=== PATIENT | male | born 1995 | race Native Hawaiian/Other Pacific Islander ===

== ENCOUNTER 2017-01-06 22:20 | Inpatient (IN) | payer BC, OTHER ==
[2017-01-07 00:02] LABS: Hematocrit 36.3 % (35.5-45.6); Hemoglobin 11.8 gm/dl (11.8-15.2); Mean Corpuscular HGB Conc 33 % (32-34); Mean Corpuscular Hemoglobin 29 pg (28-32); Mean Corpuscular Volume 89 fl (84-94); Platelet Count 197 K/mm3 (140-440); Red Blood Count 4.06 M/mm3 (3.65-5.03); Red Cell Distribution Width 14.3 % (13.2-15.2); White Blood Count 5.7 K/mm3 (4.5-11.0)
[2017-01-07 00:13] LABS: Alanine Aminotransferase 21 units/L (7-56); Albumin 3.8 g/dL (3.9-5); Alkaline Phosphatase 135 units/L (35-129); Anion Gap 17 mmol/L; Bilirubin,Total 0.3 mg/dL (0.1-1.2); Blood Urea Nitrogen 10 mg/dL (9-20); Calcium 8.9 mg/dL (8.4-10.2); Carbon Dioxide 25 mmol/L (22-30); Chloride 105.1 mmol/L (98-107); Glucose 102 mg/dL (75-100); Sodium 143 mmol/L (137-145); Total Protein 7.6 g/dL (6.3-8.2)
[2017-01-07] MEDS ORDERED: NACL ONE (02:14)
[2017-01-07 02:19] LABS: Anisocytosis Few; Blastocytes % (Manual) 0 %; Diff Status Complete; Eosinophils % (Manual) 0 % (0.0-4.3)
[2017-01-07 02:21] LABS: Lipase 26 units/L (13-60)
[2017-01-07] MEDS ORDERED: BENADRYL IV ONE (03:26)
--- NOTE | 2017-01-07 03:51 | Emergency Department Report ---
HPI - General Chief Complaint: Abdominal Pain Time Seen by Provider: 01/07/17 03:12 - HPI HPI: Room 8 The patient is a 21-year-old male presenting with a chief complaint of foreign body in the rectum. The patient states 2 weeks ago while on spring in [place] placed a foreign body in his rectum. The patient states the foreign body was stuck and he was unable to retrieve it. The patient states he was able to have bowel movements for one week after the event but has not had a bowel movement for the past week. The patient states he went to the hospital in [place] (01/05/2017) where they were able to see the foreign body CT scan. The patient states after the scan his abdomen was found to be distended and the physicians were concerned about bowel perforation recommended taking him to the OR. The patient states he left the hospital AGAINST MEDICAL ADVICE because he did not want to undergo surgery in [place] because he did not want his parents to find out about his situation. The patient was flying back home when he had a layover in [place]. The patient states today he noticed the fever Tmax 101.3F. The patient states at 19:30 he took Tylenol. Patient states during his layover in [place] his pain increased. The patient describes his pain as sharp in nature and located in his left upper quadrant. The patient states applying pressure improves his pain. The patient states for the past 3 days he has exhibited nausea and vomiting. Location: Abdomen Duration: 2 weeks Quality: Sharp Severity: Moderate Modifying factors: [see above] Context: [see above] Mode of transportation: [not driving] ED Past Medical Hx - Past Medical History Hx Sickle Cell Disease: Yes (ss) Additional medical history: acute chest syndrome - Surgical History Past Surgical History?: Yes Additional Surgical History: partial splenectomy - Family History Family history: no significant - Social History Smoking Status: Never Smoker Substance Use Type: Alcohol (occasional) ED Review of Systems ROS: Stated complaint: RECTAL PAIN 2 WKS Other details as noted in HPI Comment: All other systems reviewed and negative Constitutional: fever Eyes: denies: eye pain, eye discharge, vision change ENT: denies: ear pain, throat pain Respiratory: denies: cough, shortness of breath, wheezing Cardiovascular: denies: chest pain, palpitations Endocrine: no symptoms reported Gastrointestinal: abdominal pain, nausea, vomiting, constipation Genitourinary: denies: urgency, dysuria Musculoskeletal: denies: back pain, joint swelling, arthralgia Skin: denies: rash, lesions Neurological: denies: headache, weakness, paresthesias Psychiatric: denies: anxiety, depression Hematological/Lymphatic: denies: easy bleeding, easy bruising Physical Exam - Physical Exam Vital Signs: Vital Signs 01/06/17 23:00 Temperature 98.3 F Pulse Rate 87 Respiratory 18 Rate Blood Pressure 146/92 O2 Sat by Pulse 99 Oximetry Physical Exam: GENERAL: The patient is well-developed well-nourished male standing in room not appearing to be in acute distress. [] HEENT: Normocephalic. Atraumatic. Extraocular motions are intact. Patient has moist mucous membranes. NECK: Supple. Trachea midline CHEST/LUNGS: Clear to auscultation. There is no respiratory distress noted. HEART/CARDIOVASCULAR: Regular. There is no tachycardia. There is no gallop rub or murmur. ABDOMEN: Abdomen is soft, with tenderness to palpation in the epigastric and left upper quadrant.. Patient has normal bowel sounds. There is no abdominal distention. SKIN: There is no rash. There is no edema. There is no diaphoresis. NEURO: The patient is awake, alert, and oriented. The patient is cooperative. The patient has normal speech MUSCULOSKELETAL: There is no evidence of acute injury. RECTAL: (Chaperoned by nurse Flannery) patient would not tolerate rectal exam shows unable to palpate or retrieve foreign body ED Course Vital Signs 01/06/17 23:00 Temperature 98.3 F Pulse Rate 87 Respiratory 18 Rate Blood Pressure 146/92 O2 Sat by Pulse 99 Oximetry - Consultations Consultation #1: 01/07/17 04:46 Gastroenterology paged 01/07/17 04:54 Case discussed with hand sewer shoes Dr. Guallpa. He recommends keeping the patient NPO and he will evaluate this morning and likely perform endoscopy ED Medical Decision Making - Lab Data Result diagrams: 01/06/17 23:30 01/06/17 23:30 Laboratory Tests 01/06/17 01/06/17 23:30 23:30 WBC 5.7 RBC 4.06 Hgb 11.8 Hct 36.3 MCV 89 MCH 29 MCHC 33 RDW 14.3 Plt Count 197 Lymph % (Auto) Microbiology Instructor Add Manual Diff Complete Total Counted 100 Seg Neutrophils % Microbiology Instructor Seg Neuts % (Manual) 38.0 L Band Neutrophils % 2.0 Lymphocytes % (Manual) 47.0 H Reactive Lymphs % (Man) 5.0 Monocytes % (Manual) 7.0 Eosinophils % (Manual) 0 Basophils % (Manual) 1.0 Metamyelocytes % 0 Myelocytes % 0 Promyelocytes % 0 Blast Cells % 0 Nucleated RBC % Not Reportable Seg Neutrophils # Man 2.2 Band Neutrophils # 0.1 Lymphocytes # (Manual) 2.7 Abs React Lymphs (Man) 0.3 Monocytes # (Manual) 0.4 Eosinophils # (Manual) 0.0 Basophils # (Manual) 0.1 Metamyelocytes # 0.0 Myelocytes # 0.0 Promyelocytes # 0.0 Blast Cells # 0.0 WBC Morphology Not Reportable Hypersegmented Neuts Not Reportable Hyposegmented Neuts Not Reportable Hypogranular Neuts Not Reportable Smudge Cells Not Reportable Toxic Granulation Not Reportable Toxic Vacuolation Not Reportable Dohle Bodies Not Reportable Pelger-Huet Anomaly Not Reportable Jane Rods Not Reportable Platelet Estimate Appears normal Clumped Platelets Not Reportable Plt Clumps, EDTA Not Reportable Large Platelets Not Reportable Giant Platelets Not Reportable Platelet Satelliting Not Reportable Plt Morphology Comment Not Reportable RBC Morphology Not Reportable Dimorphic RBCs Not Reportable Polychromasia Not Reportable Hypochromasia Not Reportable Poikilocytosis Not Reportable Anisocytosis Few Microcytosis Not Reportable Macrocytosis Not Reportable Spherocytes Not Reportable Pappenheimer Bodies Not Reportable Sickle Cells Not Reportable Target Cells Not Reportable Tear Drop Cells Not Reportable Ovalocytes Not Reportable Helmet Cells Not Reportable [place] Bodies Not Reportable [place] Rings Not Reportable [place] Cells Not Reportable Bite Cells Not Reportable Crenated Cell Not Reportable Elliptocytes Not Reportable Acanthocytes (Spur) Not Reportable Rouleaux Not Reportable Hemoglobin C Crystals Not Reportable Schistocytes Not Reportable Malaria parasites Not Reportable Johnathan Bodies Not Reportable Hem Pathologist Commnt No Sodium 143 Potassium 4.0 Chloride 105.1 Carbon Dioxide 25 Anion Gap 17 BUN 10 Creatinine 0.5 L Estimated GFR > 60 BUN/Creatinine Ratio 20.00 Glucose 102 H Calcium 8.9 Total Bilirubin 0.3 AST 27 ALT 21 Alkaline Phosphatase 135 H Total Protein 7.6 Albumin 3.8 L Albumin/Globulin Ratio 1.0 Lipase 26 - Radiology Data Radiology results: report reviewed (CT abdomen and pelvis), image reviewed (CT abdomen and pelvis) CT abdomen and pelvis (read by radiologist)-there is a foreign object identified within the upper rectum. This measures 5 cm in length. No evidence of intestinal urinary tract obstruction - Differential Diagnosis rectal foreign body Critical care attestation.: If time is entered above; I have spent that time in minutes in the direct care of this critically ill patient, excluding procedure time. ED Disposition Clinical Impression: Rectal foreign body Disposition: OP ADMITTED IP TO THIS HOSP Is pt being admited?: Yes Does the pt Need Aspirin: No Condition: Fair Referrals: ANGELLA SAMPSON [Other] - 3-5 Days Time of Disposition: 04:57 (hospitalist paged)
--- NOTE | 2017-01-07 04:38 | Cat Scan Report ---
FINAL REPORT PROCEDURE: CT ABDOMEN PELVIS W CON TECHNIQUE: Computerized axial tomography of the abdomen and pelvis was performed after the IV injection of iodinated nonionic contrast. HISTORY: fb in rectum abd pain COMPARISON: No prior studies are available for comparison. FINDINGS: Visualized lower thorax: No significant abnormality. Liver: Normal size and attenuation. Spleen: Normal size and attenuation. Gallbladder and biliary system: Normal. Pancreas: Normal. Adrenals: Normal. Kidneys: Normal. GI tract: The stomach is normal. The small bowel has a normal caliber. No obstruction, ileus or enteritis. The cecum is normal. There is a foreign object identified within the upper rectum this measures 5 centimeters in length.. Lymph nodes and mesentery: Normal. Vasculature: Normal. Bladder: Normal. Reproductive organs: Normal. Peritoneum: No free fluid. Musculoskeletal structures: No significant abnormality. Other: None. IMPRESSION: There is a foreign object identified within the upper rectum. This measures 5 centimeters in length. No evidence of intestinal urinary tract obstruction.
[2017-01-07] MEDS ORDERED: NACL 0.9% 1000 ML 1,000 ML IV ONE (04:53)
[2017-01-07] MEDS ORDERED: ZOFRAN IV ONE (04:56)
[2017-01-07] MEDS ORDERED: SUBLIMAZE IV ONE (04:56)
[2017-01-07 05:05] LABS: Bilirubin,Urine NEG (Negative); Blood,Urine NEG (Negative); Ketones,Urine NEG (Negative); Leukocyte Esterase,Urine NEG (Negative); Mucus,Urine 2+ /HPF; Nitrite,Urine NEG (Negative); Protein,Urine <15 mg/dL mg/dL (Negative); RBC,Urine < 1.0 /HPF (0.0-6.0); Urobilinogen,Urine < 2.0 mg/dL (<2.0); WBC,Urine < 1.0 /HPF (0.0-6.0)
--- NOTE | 2017-01-07 06:07 | History and Physical Report ---
History of Present Illness Date of examination: 01/07/17 History of present illness: 20-year-old man with sickle cell comes today to the emergency room because 2 weeks ago he experienced a foreign body being stuck in his rectum. He experienced immediate pain the day after and his rectum. He also experiences left side abdominal pain, described as sharp, constant, started a week ago, intensity 8/10, no radiation, worse with movement. He was in [place] 4 days ago, he went to the hospital, he had a CAT scan done and they wanted to take him to surgery to remove the foreign body that he refused. Patient had a flight to go back to [place] and he did not want to miss his flight. Patient flight was layover in [place], he was unable to sit on the flight, he was made to lie down. The flight attendants recommended that the patient go to the nearest hospital for evaluation. Stated that he started having fever last night Patient denies chest pain, palpitation, shortness of breath, cough, hematochezia, dysuria, frequency, focal weakness, dysarthria,chills, polydipsia polyuria, hot or cold intolerance, easy bruisability, or rash or bleeding from mucosal membrane, rhinorrhea, epistaxis, earache, tinnitus, blurry vision, eye discharge, anxiety, depression. Other review of systems negative PAST SURGICAL HISTORY: splenectomy SOCIAL HISTORY: Denies tobacco, drugs, social alcohol use FAMILY HISTORY: Sickle cell Medications and Allergies Allergies Allergy/AdvReac Type Severity Reaction Status Date / Time ketorolac tromethamine Allergy Rash Verified 01/06/17 22:58 [From Toradol] Home Medications Medication Instructions Recorded Confirmed Last Taken Type HYDROcodone/APAP 10-325 10 mg PO Q4HR PRN 01/07/17 01/07/17 Unknown History Morphine 25 mg PO DAILY 01/07/17 01/07/17 Unknown History Docusate Sodium [Colace] 100 mg PO BID PRN #14 capsule 01/10/17 Unknown Rx Hydroxyurea 500 mg PO BID #14 01/10/17 Unknown Rx Active Meds: Active Medications Enoxaparin Sodium (Lovenox) 40 mg SUB-Q QDAY ELLIOT Sodium Chloride (Nacl 0.9% 1000 Ml) 1,000 mls @ 125 mls/hr IV ONCE ONE Stop: 01/07/17 12:52 Last Admin: 01/07/17 05:31 Dose: 125 mls/hr Sodium Chloride (Nacl 0.9% 1000 Ml) 1,000 mls @ 125 mls/hr IV DIRECT ELLIOT Morphine Sulfate (Morphine) 2 mg IV Q4H PRN PRN Reason: Pain, Moderate (4-6) Ondansetron HCl (Zofran) 4 mg IV Q8H PRN PRN Reason: N/V unrelieved by Reglan Exam - Physical Exam Narrative exam: Gen. appearance: Patient lying in bed, no apparent distress HEENT: Normocephalic, atraumatic, pupils equally round and reactive to light, extraocular movement intact, and no sclericterus,. No JVD or thyromegaly or nodule,neck supple, no carotid bruit ,mucous membranes moist, no exudate or erythema Heart: S1, S2, regular rate and rhythm Lungs: Clear to auscultation bilaterally, breathing comfortable Abdomen: Positive bowel sounds, tender on the left, distended, no organomegaly Extremity: No edema, cyanosis, clubbing Skin: No rash, nodules, warm, dry Neuro: Oriented 3, cranial nerves II-12 intact, speech is fluent, motor and sensory intact - Constitutional Vitals: Temp Pulse Resp BP Pulse Ox 98.3 F 82 18 123/79 96 01/06/17 23:00 01/07/17 05:01 01/07/17 05:32 01/07/17 04:30 01/07/17 05:01 Results - Labs CBC & Chem 7: 01/09/17 04:43 01/09/17 04:43 Labs: Abnormal lab results 01/06/17 01/06/17 Range/Units 23:30 23:30 Seg Neuts % (Manual) 38.0 L (40.0-70.0) % Lymphocytes % (Manual) 47.0 H (13.4-35.0) % Creatinine 0.5 L (0.8-1.5) mg/dL Glucose 102 H (75-100) mg/dL Alkaline Phosphatase 135 H (35-129) units/L Albumin 3.8 L (3.9-5) g/dL - Imaging and Cardiology Abdominal x-ray: image reviewed CT scan - pelvis: report reviewed US - abdomen: report reviewed Assessment and Plan Foreign body in rectum Fever Admits medicine Start IV fluids, IV antibiotics GI is consulted to see the patient, Dr. Guallpa is aware the patient Start IV morphine, DVT prophylaxis
[2017-01-07] MEDS ORDERED: ZOFRAN ONE ×2 (06:39→17:43)
[2017-01-07] MEDS ORDERED: MORPHINE ONE (06:39)
[2017-01-07] MEDS ORDERED: WATER FOR IRRIG STERILE IR ONE ×3 (06:52→13:32)
[2017-01-07] MEDS ORDERED: NACL 0.9% 1000 ML 1,000 ML ONE (07:00)
--- NOTE | 2017-01-07 07:01 | Admit Criteria Form ---
Admission Criteria Documentation: ABDOMINAL PAIN Clinical Indications for Admission to Inpatient Care (Place 'X' for any and all applicable criteria): Admission is indicated for ANY ONE of the following(1)(2)(3)(4)(5): [X]I. Inpatient admission required rather than observation care (Also use Abdominal Pain: Observation Care, as appropriate) because of ANY ONE of the following: [X]a) Severe pain requiring acute inpatient management [ ]b) Identification of etiology/finding that requires inpatient care (eg, aortic dissection, free air) [ ]c) Absent bowel sounds with complete ileus(6) [ ]d) Suspected toxic megacolon [ ]e) Severe electrolyte abnormalities requiring inpatient care [ ]f) High fever or infection requiring inpatient admission as indicated by ANY ONE of following(7)(8): [ ] i) Appropriate outpatient or observational care antimicrobial treatment unavailable, not effective, or not feasible [ ] ii) Documented bacteremia [ ] iii) Temperature > 104.9 degrees F (oral) [ ] iv) T >103.1 F (oral) or < 96.8 F(rectal) that does not respond to all emergency treatment measures [ ]g) Signs of intestinal obstruction [B] [ ]h) Hemodynamic instability [ ]i) IV fluid to replace significant ongoing losses (greater than 3 L/m2 per day) (12)(13) [ ]j) Percutaneous or open drainage (eg, abscess, biliary tract ) procedures [ ]k) Parenteral nutrition regimen that must be implemented on inpatient basis [ ]l) Other condition,treatment or monitoring requiring inpatient admission. [ ]II. Peritoneal signs present [ ]III. Surgery needed that cannot be performed on an ambulatory basis. [ ]IV. Evaluation requires patient to not eat or drink for extended period ( eg, more than 24 hours). [ ]V. Contraindications and/or Inappropriate clinical situations for Observational Care in patients with abdominal pain, when ANY ONE of the following is required: [ ]a) Thorough evaluation is required to prevent catastrophic events due to delays in diagnosing (e.g.Mesenteric ischemia) 1,3 [ ]b) Patient with severe pathology or with chronic symptoms unlikely to improve in the ED stay (3) [ ]. General contraindications and/or Inappropriate clinical situations for Observational Care in patients with abdominal pain, when ANY ONE of the following is required: [ ]a) Prediction of prolongation of LOS based on ANY ONE of the following may be considered as a contraindication for observational care 2, 3, 4, 5, 6, 7, 8, 9, 10, 11 [ ]i) Age > 65 yrs. [ ]ii) Patient arriving by ambulance [ ]iii) Patient with high acuity [ ]iv) Patient requiring vital sign monitoring [ ]v) Patient on IV medication [ ]b) Systolic blood pressures 180mmHg 3,12 [ ]c) Patient with altered mental status including delirium and other alteration of consciousness, (3) [ ]d) Patient whose discharge disposition will be to a senior care home or rehabilitation home should not be managed in Emergency Department Observation Unit. CMS rule requires 3 days hospital stay before such placement.3,13 [ ]e) Patient with failure to thrive due to broad array of etiologies 3,16,17 [ ]f) Inability to ambulate 3,14 Extended stay beyond goal length of stay may be needed for(2)(3): [ ]a) Persistent abdominal pain with suspected intra-abdominal process [ ]b) Diagnosed condition requiring continued stay (e.g., pancreatitis, complicated diverticulitis) [ ]c) Surgery (e.g., colectomy) The original [facility] content created by [employer] has been revised. The portions of the content which have been revised are identified through the use of italic text or in bold, and [facility] has neither reviewed nor approved the modified material.All other unmodified content is copyright [employer]. Please see references footnoted in the original [employer] [facility] edition 2016 Admission Criteria Met: Yes
[2017-01-07] MEDS: MORPHINE IV PRN ×3 (07:06→20:30)
[2017-01-07] MEDS: ZOFRAN IV PRN (07:06)
[2017-01-07] MEDS ORDERED: VERSED IV ONE (07:26)
[2017-01-07] MEDS ORDERED: SUBLIMAZE ONE ×2 (07:27→16:46)
[2017-01-07] MEDS ORDERED: WATER FOR IRRIG STERILE ONE (08:58)
[2017-01-07] MEDS: FLAGYL 500 MG/100 ML 500 MG/100 ML BAG IV SCH ×3 (09:51→22:06)
[2017-01-07] MEDS: LEVAQUIN 750MG/150ML 750 MG/150 ML BAG IV SCH (11:13)
[2017-01-07] MEDS: NACL 0.9% 1000 ML 1,000 ML IV SCH (11:14)
[2017-01-07] MEDS: LOVENOX SUB-Q SCH (11:18)
[2017-01-07] MEDS ORDERED: PERCOCET 5/325 PO PRN (12:14)
--- NOTE | 2017-01-07 12:17 | Progress Note ---
Assessment and Plan Assessment and plan: --Foreign Body rectum Unsuccessful attempt to remove by GI Surgery evaluation for possible exploratory treatment laparotomy and removal Nothing by mouth status, IV fluids, IV antibiotics --History of sickle cell disease Supportive care with IV fluids, pain medications Consult hematology oncology --History of splenectomy Continue current IV antibiotics --DVT prophylaxis, SCDs Patient's condition treatment plan discussed in detail with the patient and his nurse as well as the surgeon History Interval history: Patient seen and evaluated in his room this morning medical records reviewed Admitted with 3 weeks history of rectal foreign body, lower abdominal pain GI has attempted to remove the foreign body but unsuccessful Patient complains of vague discomfort in the rectal area and lower abdomen Denies nausea vomiting And also has history of sickle cell disease, on pain medications Duct awake oriented 3 not in acute distress Hospitalist Physical - Constitutional Vitals: Temp Pulse Resp BP Pulse Ox 98.2 F 91 H 20 122/78 98 01/07/17 10:46 01/07/17 10:46 01/07/17 10:46 01/07/17 10:46 01/07/17 10:46 General appearance: Present: no acute distress, well-nourished - EENT Eyes: Present: PERRL, EOM intact - Neck Neck: Present: supple, normal ROM - Respiratory Respiratory effort: normal Respiratory: bilateral: diminished, negative: rales, rhonchi, wheezing - Cardiovascular Rhythm: regular Heart Sounds: Present: S1 & S2 - Extremities Extremities: no ischemia, pulses intact, pulses symmetrical Peripheral Pulses: within normal limits - Abdominal General gastrointestinal: soft, non-tender, distended ( mild distention), normal bowel sounds - Integumentary Integumentary: Present: clear, warm - Psychiatric Psychiatric: appropriate mood/affect, cooperative - Neurologic Neurologic: CNII-XII intact, moves all extremities Results - Labs CBC & Chem 7: 01/06/17 23:30 01/06/17 23:30 Labs: Laboratory Last Values WBC 5.7 K/mm3 (4.5-11.0) 01/06/17 23:30 RBC 4.06 M/mm3 (3.65-5.03) 01/06/17 23:30 Hgb 11.8 gm/dl (11.8-15.2) 01/06/17 23:30 Hct 36.3 % (35.5-45.6) 01/06/17 23:30 MCV 89 fl (84-94) 01/06/17 23:30 MCH 29 pg (28-32) 01/06/17 23:30 MCHC 33 % (32-34) 01/06/17 23:30 RDW 14.3 % (13.2-15.2) 01/06/17 23:30 Plt Count 197 K/mm3 (140-440) 01/06/17 23:30 Lymph % (Auto) Wood Milling Machine Operator 01/06/17 23:30 Add Manual Diff Complete 01/06/17 23:30 Total Counted 100 01/06/17 23:30 Seg Neutrophils % Wood Milling Machine Operator 01/06/17 23:30 Seg Neuts % (Manual) 38.0 % (40.0-70.0) L 01/06/17 23:30 Band Neutrophils % 2.0 % 01/06/17 23:30 Lymphocytes % (Manual) 47.0 % (13.4-35.0) H 01/06/17 23:30 Reactive Lymphs % (Man) 5.0 % 01/06/17 23:30 Monocytes % (Manual) 7.0 % (0.0-7.3) 01/06/17 23:30 Eosinophils % (Manual) 0 % (0.0-4.3) 01/06/17 23:30 Basophils % (Manual) 1.0 % (0.0-1.8) 01/06/17 23:30 Metamyelocytes % 0 % 01/06/17 23:30 Myelocytes % 0 % 01/06/17 23:30 Promyelocytes % 0 % 01/06/17 23:30 Blast Cells % 0 % 01/06/17 23:30 Nucleated RBC % Not Reportable 01/06/17 23:30 Seg Neutrophils # Man 2.2 K/mm3 (1.8-7.7) 01/06/17 23:30 Band Neutrophils # 0.1 K/mm3 01/06/17 23:30 Lymphocytes # (Manual) 2.7 K/mm3 (1.2-5.4) 01/06/17 23:30 Abs React Lymphs (Man) 0.3 K/mm3 01/06/17 23:30 Monocytes # (Manual) 0.4 K/mm3 (0.0-0.8) 01/06/17 23:30 Eosinophils # (Manual) 0.0 K/mm3 (0.0-0.4) 01/06/17 23:30 Basophils # (Manual) 0.1 K/mm3 (0.0-0.1) 01/06/17 23:30 Metamyelocytes # 0.0 K/mm3 01/06/17 23:30 Myelocytes # 0.0 K/mm3 01/06/17 23:30 Promyelocytes # 0.0 K/mm3 01/06/17 23:30 Blast Cells # 0.0 K/mm3 01/06/17 23:30 WBC Morphology Not Reportable 01/06/17 23:30 Hypersegmented Neuts Not Reportable 01/06/17 23:30 Hyposegmented Neuts Not Reportable 01/06/17 23:30 Hypogranular Neuts Not Reportable 01/06/17 23:30 Smudge Cells Not Reportable 01/06/17 23:30 Toxic Granulation Not Reportable 01/06/17 23:30 Toxic Vacuolation Not Reportable 01/06/17 23:30 Dohle Bodies Not Reportable 01/06/17 23:30 Pelger-Huet Anomaly Not Reportable 01/06/17 23:30 Jane Rods Not Reportable 01/06/17 23:30 Platelet Estimate Appears normal 01/06/17 23:30 Clumped Platelets Not Reportable 01/06/17 23:30 Plt Clumps, EDTA Not Reportable 01/06/17 23:30 Large Platelets Not Reportable 01/06/17 23:30 Giant Platelets Not Reportable 01/06/17 23:30 Platelet Satelliting Not Reportable 01/06/17 23:30 Plt Morphology Comment Not Reportable 01/06/17 23:30 RBC Morphology Not Reportable 01/06/17 23:30 Dimorphic RBCs Not Reportable 01/06/17 23:30 Polychromasia Not Reportable 01/06/17 23:30 Hypochromasia Not Reportable 01/06/17 23:30 Poikilocytosis Not Reportable 01/06/17 23:30 Anisocytosis Few 01/06/17 23:30 Microcytosis Not Reportable 01/06/17 23:30 Macrocytosis Not Reportable 01/06/17 23:30 Spherocytes Not Reportable 01/06/17 23:30 Pappenheimer Bodies Not Reportable 01/06/17 23:30 Sickle Cells Not Reportable 01/06/17 23:30 Target Cells Not Reportable 01/06/17 23:30 Tear Drop Cells Not Reportable 01/06/17 23:30 Ovalocytes Not Reportable 01/06/17 23:30 Helmet Cells Not Reportable 01/06/17 23:30 [place] Bodies Not Reportable 01/06/17 23:30 [place] Rings Not Reportable 01/06/17 23:30 [place] Cells Not Reportable 01/06/17 23:30 Bite Cells Not Reportable 01/06/17 23:30 Crenated Cell Not Reportable 01/06/17 23:30 Elliptocytes Not Reportable 01/06/17 23:30 Acanthocytes (Spur) Not Reportable 01/06/17 23:30 Rouleaux Not Reportable 01/06/17 23:30 Hemoglobin C Crystals Not Reportable 01/06/17 23:30 Schistocytes Not Reportable 01/06/17 23:30 Malaria parasites Not Reportable 01/06/17 23:30 Johnathan Bodies Not Reportable 01/06/17 23:30 Hem Pathologist Commnt No 01/06/17 23:30 Sodium 143 mmol/L (137-145) 01/06/17 23:30 Potassium 4.0 mmol/L (3.6-5.0) 01/06/17 23:30 Chloride 105.1 mmol/L (98-107) 01/06/17 23:30 Carbon Dioxide 25 mmol/L (22-30) 01/06/17 23:30 Anion Gap 17 mmol/L 01/06/17 23:30 BUN 10 mg/dL (9-20) 01/06/17 23:30 Creatinine 0.5 mg/dL (0.8-1.5) L 01/06/17 23:30 Estimated GFR > 60 ml/min 01/06/17 23:30 BUN/Creatinine Ratio 20.00 % 01/06/17 23:30 Glucose 102 mg/dL (75-100) H 01/06/17 23:30 Calcium 8.9 mg/dL (8.4-10.2) 01/06/17 23:30 Total Bilirubin 0.3 mg/dL (0.1-1.2) 01/06/17 23:30 AST 27 units/L (5-40) 01/06/17 23:30 ALT 21 units/L (7-56) 01/06/17 23:30 Alkaline Phosphatase 135 units/L (35-129) H 01/06/17 23:30 Total Protein 7.6 g/dL (6.3-8.2) 01/06/17 23:30 Albumin 3.8 g/dL (3.9-5) L 01/06/17 23:30 Albumin/Globulin Ratio 1.0 % 01/06/17 23:30 Lipase 26 units/L (13-60) 01/06/17 23:30 Urine Color Yellow (Yellow) 01/07/17 04:38 Urine Turbidity Clear (Clear) 01/07/17 04:38 Urine pH 6.0 (5.0-7.0) 01/07/17 04:38 Ur Specific [place] 1.029 (1.003-1.030) 01/07/17 04:38 Urine Protein <15 mg/dl mg/dL (Negative) 01/07/17 04:38 Urine Glucose (UA) Neg mg/dL (Negative) 01/07/17 04:38 Urine Ketones Neg mg/dL (Negative) 01/07/17 04:38 Urine Blood Neg (Negative) 01/07/17 04:38 Urine Nitrite Neg (Negative) 01/07/17 04:38 Urine Bilirubin Neg (Negative) 01/07/17 04:38 Urine Urobilinogen < 2.0 mg/dL (<2.0) 01/07/17 04:38 Ur Leukocyte Esterase Neg (Negative) 01/07/17 04:38 Urine WBC (Auto) < 1.0 /HPF (0.0-6.0) 01/07/17 04:38 Urine RBC (Auto) < 1.0 /HPF (0.0-6.0) 01/07/17 04:38 Urine Mucus 2+ /HPF 01/07/17 04:38
[2017-01-07] MEDS ORDERED: ceFAZolin 2 GM in NACL 0.9% 100 ML IV ONE (13:11)
[2017-01-07] MEDS: MS CONTIN ER PO SCH ×2 (13:24→22:58)
--- NOTE | 2017-01-07 13:25 | Progress Note ---
Assessment and Plan Full consult dictated 21 y/o sickle cell pt. 3 wk hx of rectal foreign body. Unsuccessful attempt at removal by GI Pt comfortable, ambulating down halls Abd [address] distention labs as below. CT abd reviewed. foreign body approx 8 cm from anus will need expl lap and foreign body removal. possible colostomy. risks, indications & compl reviewed with pt. including risks secondary to sickle cell discussed with hospitalist pre op eval by anesthesia & hematology pneumovax for expl lap in am if medically cleared Laboratory Tests 01/06/17 01/06/17 23:30 23:30 WBC 5.7 Hgb 11.8 Hct 36.3 Sodium 143 Potassium 4.0 Chloride 105.1 Carbon Dioxide 25 Anion Gap 17 BUN 10 Creatinine 0.5 L Objective Vital Signs - 12hr 01/07/17 01/07/17 01/07/17 07:10 08:39 09:53 Temperature 98.6 F 98.6 F Pulse Rate 98 H 98 H Pulse Rate [ Right From Monitor] Respiratory 12 12 Rate Blood Pressure 139/89 105/58 105/58 Blood Pressure [Left Arm] O2 Sat by Pulse 96 97 97 Oximetry 01/07/17 10:46 Temperature 98.2 F Pulse Rate Pulse Rate [ 91 H Right From Monitor] Respiratory 20 Rate Blood Pressure Blood Pressure 122/78 [Left Arm] O2 Sat by Pulse 98 Oximetry - Labs 01/06/17 23:30 01/06/17 23:30
--- NOTE | 2017-01-07 13:48 | Anesthesia Consultation ---
Anesthesia Consult and Med Hx - Hematic Hx Sickle Cell Disease: Yes (ss)
[2017-01-07] MEDS ORDERED: ANCEF/STERILE WATER 2 GM/20 ML 2 GM/20 ML SYRINGE IV NR (15:00)
[2017-01-07] MEDS ORDERED: DIPRIVAN 10 MG/ML IV ONE (16:37)
[2017-01-07] MEDS ORDERED: VERSED ONE (16:47)
[2017-01-07] MEDS ORDERED: ZEMURON IV ONE (17:43)
[2017-01-07] MEDS ORDERED: XYLOCAINE MPF 2% ONE ×2 (17:43→17:53)
[2017-01-07] MEDS ORDERED: QUELICIN ONE (17:43)
--- NOTE | 2017-01-07 17:57 | Post Operative Note ---
Pre-op diagnosis: foreign body Post-op diagnosis: same Findings: colonoscopy: poor prep, no foreign body noted Procedure: colonoscopy Anesthesia: MAC Surgeon: CLEVELAND HIGH Estimated blood loss: none Condition: stable Disposition: floor
--- NOTE | 2017-01-07 18:26 | XRay Report ---
FINAL REPORT PROCEDURE: XR ABDOMEN 2V TECHNIQUE: Abdomen, two views HISTORY: FOREIGN BODY COMPARISON: CT 01/07/2017 FINDINGS: Previously seen foreign body is not visualized. There is gaseous distention of the small and large bowel loops. Moderate constipation. IMPRESSION: No radiopaque foreign body is identified
--- NOTE | 2017-01-07 18:28 | Consultation ---
REASON FOR CONSULTATION: Sickle cell crisis. History is obtained from the patient as well as his chart. HISTORY OF PRESENT ILLNESS: The patient is a 21-year-old black male who states that he is having sickle cell crisis all over his body. He feels that it might have been precipitated by his present problems of having a foreign body in his rectum. The foreign body was forcibly put into his rectum 3 weeks ago. By his report, it was done while he was on spring break in [place]. He said it was not a consensual process done and that he was unable to retrieve it. He flew from [place] to [place] and was seen in the hospital on 01/05/2017 where they were able to see the foreign body on CAT scan. His abdomen at that time was distended and the physicians were concerned about bowel perforation and recommended taking him to the operating room; however, he left the hospital against medical advice because he did not want to undergo surgery in [place] as he did not want his parents to find out about his situation. He was going to fly back to [place], but had a layover in [place] and while layover in [place] and his pain increased to the point that it was very sharp, located in the left upper quadrant and had nausea, vomiting for about 3 days as well as a fever to a T-max of 101.3. He was then taken here to [facility]. The patient states that he had to tell his parents to but 2 seats for the airplane because he could not get sit comfortably, he had to lay. The pain is wide spread throughout his body, obviously the pain is primarily in his rectal area. He believes that the sickle cell crisis was precipitated by his present problem. PAST MEDICAL HISTORY: Significant for acute chest syndrome which occurred earlier this year and actually required him to be intubated. PAST SURGICAL HISTORY: Partial splenectomy. FAMILY HISTORY: Both the parents have sickle cell disease. SOCIAL HISTORY: The patient is single. He is engaged. He has never smoked, rare alcohol use and denies recreational drug use. REVIEW OF SYSTEMS: CONSTITUTIONAL: Fever. HEENT: No eye pain. No visual change. No sore throat. No ear pain. RESPIRATORY: No shortness of breath, cough. No pleuritic chest pain. CARDIOVASCULAR: No palpitations or chest pain. GASTROINTESTINAL: Abdominal discomfort primarily on the left lower quadrant. He has had 3 days of nausea, vomiting and has not had a bowel movement for about a week. GENITOURINARY: No emergency or dysuria. MUSCULOSKELETAL: He denies any arthralgias or joint arthralgias or myalgias. SKIN: No rashes. NEUROLOGIC: No weakness, paresthesias or syncope. PSYCH: Some anxiety. HEMATOLOGIC: No easy bruising or prolonged bleeding. PHYSICAL EXAMINATION: VITAL SIGNS: Temperature 98.6, pulse rate 98, blood pressure 122/78, respirations 20. GENERAL: He is a slight young -[place] male who is standing up, unable to sit for examination. HEENT: Normocephalic, atraumatic. Sclerae is anicteric. NECK: Trachea is midline. LUNGS: Clear to auscultation. HEART: With regular rate and rhythm. ABDOMEN: Not distended. Bowel sounds were present that's hard to palpate; however, there was some mild tenderness in lower quadrant. RECTAL: I did not do a rectal examination. EXTREMITIES: Lower extremities revealed no edema. SKIN: Warm and dry without rash. LYMPH NODES: He had no cervical, supraclavicular, axillary adenopathy. LABORATORY DATA: Showed hemoglobin of 11.8, hematocrit of 36.3, MCV of 89, white count of 5.7 and platelet count of 197, BUN 10, creatinine 0.5. Glucose 102, alkaline phosphatase 135, total protein 7.6, albumin 3.8, AST 27, ALT 21, bilirubin 0.3. CT of the abdomen and pelvis, there is a foreign object notified within the upper rectum measuring 5 cm in length. No evidence of intestinal or urinary tract obstruction. ASSESSMENT AND PLAN: 1.History of sickle cell. Apparently now is in crisis, although his pain appears to be more rectal due to the foreign body than his general sickle cell pain. His last crisis was actually acute chest syndrome, which required him to be intubated and received 14 units of blood. He does not appear to require any transfusion at this time, would effectively manage his discomfort which again appears to be primarily in the rectal area. Pain presently is not well controlled with present regimen of morphine 2 mg every 4 hours. I have added Dilaudid 2 mg IV for severe pain every 4 hours. He also has morphine sulfate 15 mg every 12 hours and oxycodone 5/325 mg two tablets q.6h. p.r.n. The latter two medications are his usual drugs at home. He is also taking hydroxyurea 500 mg p.o. b.i.d. and he is under the care of Dr. Logan Bunn. We will check a reticulocyte count and LDH and follow with CBC. 2.Rectal foreign body. The patient was being taken to OR for possible removal by GI/Surgery. Further recommendations will follow. JOB# [id number] RRS/NTS
--- NOTE | 2017-01-07 20:49 | Operative Report ---
PROCEDURE: Proctosigmoidoscopy. INDICATION: Foreign body removal. MEDICATIONS: 1. Fentanyl 100 mcg IV 100. 2. Versed 4 mg IV throughout. COMPLICATIONS: None. DESCRIPTION OF PROCEDURE: The patient was done in the ER. The patient had the procedure discussed with him at length. All risks, complications, and benefits were discussed after which the patient signed for the procedure to be performed. The patient was placed in left lateral decubitus position. Rectal exam performed. Premedications given as above. No complications during the procedure. FINDINGS: The patient was hard to sedate and despite falling asleep at times always awoke. The endoscope was placed in the rectum and brought to the level of the rectosigmoid to distal sigmoid area. Before further evaluation could be done, the patient removed the scope manually. He did this 3 times and at which point, the procedure was terminated. No further interventions were performed. The patient tolerated the procedure well. No complications during the procedure. IMPRESSION: 1. Scope past the rectosigmoid/distal sigmoid area. 2. No foreign body noted at that area. 3. The patient removed the scope and procedure was terminated. RECOMMENDATIONS: 1. Continue current medication and diet. 2. We will plan to repeat procedure with anesthesia later today. JOB# [id number] [facility]
--- NOTE | 2017-01-07 22:24 | Operative Report ---
PROCEDURE: Colonoscopy. INDICATION: 1. Possible foreign body. 2. Abdominal pain. MEDICATIONS: General anesthesia per Anesthesia staff. COMPLICATIONS: None. DESCRIPTION OF PROCEDURE: The patient was brought to the OR. The patient had the procedure discussed with him at length. All risks, complications, and benefits were discussed after which the patient signed for the procedure to be performed. The patient was placed in left lateral decubitus position. Rectal exam performed prior to insertion of the scope. After general anesthesia was administered, scope inserted into the rectum and brought to the level of the cecum. Ileocecal valve was visualized. Colonoscope was removed and mucosa visualized. Prep quality was poor, but procedure was completed. FINDINGS: This was a poor prep, so I cannot rule out small lesions. Despite extensive searching and looking, we were unable to localize any foreign body. The mucosa otherwise appeared normal. No mass lesions, polyps, or diverticula were noted. Retroflexion showed medium internal hemorrhoids. The patient tolerated the procedure well. No complications during the procedure. IMPRESSION: 1. Poor prep. 2. No foreign body found. RECOMMENDATIONS: 1. Abdominal x-rays as ordered and we will follow results. 2. Further recommendation based on progress. JOB# [id number] CAB/NTS
[2017-01-08] MEDS ORDERED: NACL 0.9% IR ONE
[2017-01-08] MEDS: DILAUDID IV PRN ×5 (00:20→19:06)
[2017-01-08] MEDS ORDERED: BENADRYL IV ONE (00:41)
[2017-01-08] MEDS ORDERED: BENADRYL PO PRN ×2 (00:41→17:19)
--- NOTE | 2017-01-08 00:59 | Consultation ---
REASON FOR CONSULTATION: Foreign body in rectum. HISTORY OF PRESENT ILLNESS: The patient is a 21-year-old healthy gentleman who apparently had a foreign body introduced to his rectum approximately 3 weeks ago while spring break in [place]. The patient subsequent to [place], [place], where he was evaluated and instructed that the foreign body had to be removed. The patient apparently signed out AMA and was on his way to [place]. He stopped here in [place] on a layover and was told to come see a physician prior to continue his flight. At this time, the patient has been admitted through the ER. GI has attempted to remove the foreign body unsuccessfully. The patient states he overall feels well, does have some \\"fullness\\" in his lower abdomen, but no acute distress. PAST MEDICAL HISTORY: Pertinent for sickle cell disease. Also, what he described as \\"acute chest syndrome\\" from sickle cell crises. PAST SURGICAL HISTORY: Status post splenectomy. ALLERGIES: Allergic to Toradol and . MEDICATIONS: Include medicine for sickle cell as well as hydrocodone and morphine. FAMILY HISTORY: Both parents have sickle cell disease. Also, brother has sickle cell. SOCIAL HISTORY: Denies any smoking, occasional ethanol intake. REVIEW OF SYSTEMS: Noncontributory. PHYSICAL EXAMINATION: GENERAL: At this time reveals the patient to be awake, alert, cooperative, ambulating down the halls, in no acute distress. VITAL SIGNS: Show him to be afebrile with a temperature of 98.2, blood pressure 122/78, pulse of 91, respirations of 20. ABDOMEN: Examination of the abdomen reveals slight distention, but nontender. Bowel sounds were hypoactive. LABORATORY DATA: Lab work at present includes a CBC which shows a white count 5.7, H and H is 11 8 and 36.3. Electrolytes are essentially within normal limits. A CT scan of the abdomen has been performed, which I have reviewed with radiology. There is indeed a confirmation of a foreign body in the rectum approximately 8 cm from the anus. IMPRESSION AND PLAN: At this time is a 3 week old foreign body in the rectum unsuccessfully attempted to be removed by GI. Plan is to proceed with exploratory laparotomy and open removal. I have discussed with the patient the high risk due to the sickle cell and also high likelihood that we may have to actually open the rectum and not just be able to milk the foreign body out through the anus since it has been there for 3 weeks and there may be extensive amount of edema around the rectal mucosa. There is also a probability of colostomy if we do have to open as the patient is on . All this has been reviewed with the patient as well as other risks and complications because of his sickle cell, etc. The patient understands this and has signed his consent. We will also obtain anesthesia preoperative evaluation as well as hematology evaluation. We will also discuss with you. Plan is to proceed with a foreign body removal in a.m. if the patient is cleared medically from all three physicians. JOB# [id number] [facility]/WARREN
[2017-01-08] MEDS: HYDREA PO SCH ×4 (01:00→22:01)
--- NOTE | 2017-01-08 01:10 | Consultation ---
INDICATION: 1. Foreign body in rectum. 2. Abdominal pain. HISTORY OF PRESENT ILLNESS: The patient is a 21-year-old black male with history of sickle cell disease, who is status post splenectomy in the past, now presents for foreign body. The patient reports 2 weeks ago a foreign body was placed in the rectum and subsequently got lost. The patient's history is vague, but he reports he was in [place] at that time and had evaluation and was told that he needed to have surgery to have it removed, but he refused. The patient had a flight to go back to [place] and on layover in [place] became sick and was not allowed to continue to fly. He subsequently came to [facility], was evaluated and noted to have a foreign body in the rectal area, admitted and GI consulted. The patient reports one bout of nausea day prior to being seen. He reports no rectal bleeding and reports still having bowel movements. Denies any weight loss. Denies any other specific complaints. PAST MEDICAL HISTORY: Sickle cell disease. PAST SURGICAL HISTORY: Status post splenectomy. MEDICATIONS: See chart. ALLERGIES: Toradol. SOCIAL HISTORY: Denies alcohol, tobacco, or IV drug abuse. FAMILY HISTORY: Negative for colon cancer. REVIEW OF SYSTEMS: GENERAL: Reports mild weakness. HEENT: No visual complaints. PULMONARY: No shortness of breath. CARDIOVASCULAR: No chest pain. GASTROINTESTINAL: Reports mild abdominal pain. All points of 13-point review of systems otherwise negative. PHYSICAL EXAMINATION: VITAL SIGNS: Temperature of 98.2, pulse 91, respirations 20, blood pressure 111/65. GENERAL: Fairly nourished black male in no acute distress. HEENT: Pupils equal, round, reactive to light and accommodation. Extraocular muscles intact. PULMONARY: Clear to auscultation bilaterally. CARDIOVASCULAR: Regular rate and rhythm. Normal S1, S2. ABDOMEN: Positive bowel sounds, soft. SKIN: No obvious rashes. LABORATORY DATA: Pertinent for white count of 5.7, hemoglobin and hematocrit of 11.8 and 36.3, and platelet count of 197. Chem-7 within normal limits. LFTs within normal limits. CT scans show a 5 cm length foreign body in the rectal area. ASSESSMENT: A 21-year-old black male with history of sickle cell disease, status post splenectomy, now with a foreign body reportedly rectal area for 2 weeks. I have discussed options with the patient, with management as noted below. PLAN: 1. N.p.o. 2. IV fluids. 3. We will plan for colonoscopy with possible foreign body removal today. JOB# [id number] CAB/NTS DOLLYD
[2017-01-08] MEDS: NACL 0.9% 1000 ML 1,000 ML IV SCH ×2 (05:15→21:59)
[2017-01-08] MEDS: FLAGYL 500 MG/100 ML 500 MG/100 ML BAG IV SCH ×3 (05:16→22:00)
[2017-01-08 07:18] LABS: Hemoglobin 10.1 gm/dl (11.8-15.2); Mean Corpuscular HGB Conc 33 % (32-34); Mean Corpuscular Hemoglobin 29 pg (28-32); Mean Corpuscular Volume 89 fl (84-94); Platelet Count 169 K/mm3 (140-440); White Blood Count 4.4 K/mm3 (4.5-11.0)
[2017-01-08 07:27] LABS: INR 1.17 (0.87-1.13)
[2017-01-08 07:32] LABS: Anion Gap 14 mmol/L; Blood Urea Nitrogen 6 mg/dL (9-20); Calcium 8.6 mg/dL (8.4-10.2); Carbon Dioxide 25 mmol/L (22-30); Glucose 88 mg/dL (75-100); Sodium 141 mmol/L (137-145)
[2017-01-08 08:13] LABS: Blastocytes % (Manual) 0 %; Eosinophils % (Manual) 0 % (0.0-4.3)
[2017-01-08 08:17] LABS: Anisocytosis 1+; Ovalocytes 1+
[2017-01-08 08:18] LABS: Diff Status Complete; Elliptocytes Few; Polychromasia Few; Tear Drop Cells Rare
--- NOTE | 2017-01-08 09:07 | Gastroenterology Progress Note ---
Assessment and Plan 1. FB per rectum per CT scan -S/P colonoscopy with no foreign body isolated. Of note, poor prep, therefore small lesions may not be seen. Post xray did not show FB. I have ordered a stat CT scan with oral contrast only to r/o FB. This was likely passed during prep for colonoscopy. -Further recommendations to follow. Surgery following as well. Subjective Date of service: 01/08/17 Interval history: Patient continues to have abdominal pain. Objective - Constitutional Vitals: Temp Pulse Resp BP Pulse Ox 98.7 F 92 H 12 104/55 99 01/08/17 07:18 01/08/17 07:18 01/08/17 07:18 01/08/17 07:18 01/08/17 07:18 General appearance: no acute distress - EENT Eyes: EOM intact ENT: hearing intact - Neck Neck: supple - Cardiovascular Rhythm: regular Heart Sounds: Present: S1 & S2 - Gastrointestinal General gastrointestinal: Present: tender, distended, other (firm) - Integumentary Integumentary: Present: warm, dry - Neurologic Neurological: alert and oriented x3 - Psychiatric Psychiatric: appropriate mood/affect, cooperative - Labs CBC & Chem 7: 01/08/17 06:26 01/08/17 06:26 Labs: Laboratory Results - last 24 hr 01/08/17 01/08/17 01/08/17 06:26 06:26 06:26 WBC 4.4 L RBC 3.50 L Hgb 10.1 L Hct 31.0 L MCV 89 MCH 29 MCHC 33 RDW 14.0 Plt Count 169 Add Manual Diff Complete Total Counted 100 Seg Neuts % (Manual) 8.0 L Band Neutrophils % 33.0 Lymphocytes % (Manual) 48.0 H Reactive Lymphs % (Man) 0 Monocytes % (Manual) 4.0 Eosinophils % (Manual) 0 Basophils % (Manual) 1.0 Metamyelocytes % 4.0 Myelocytes % 2.0 Promyelocytes % 0 Blast Cells % 0 Nucleated RBC % Not Reportable Seg Neutrophils # Man 0.4 L Band Neutrophils # 1.5 Lymphocytes # (Manual) 2.1 Abs React Lymphs (Man) 0.0 Monocytes # (Manual) 0.2 Eosinophils # (Manual) 0.0 Basophils # (Manual) 0.0 Metamyelocytes # 0.2 Myelocytes # 0.1 Promyelocytes # 0.0 Blast Cells # 0.0 WBC Morphology Not Reportable Hypersegmented Neuts Not Reportable Hyposegmented Neuts Not Reportable Hypogranular Neuts Not Reportable Smudge Cells Not Reportable Toxic Granulation Not Reportable Toxic Vacuolation Not Reportable Dohle Bodies Not Reportable Pelger-Huet Anomaly Not Reportable Jane Rods Not Reportable Platelet Estimate Appears normal Clumped Platelets Not Reportable Plt Clumps, EDTA Not Reportable Large Platelets Not Reportable Giant Platelets Not Reportable Platelet Satelliting Not Reportable Plt Morphology Comment Not Reportable RBC Morphology Not Reportable Dimorphic RBCs Not Reportable Polychromasia Few Hypochromasia Not Reportable Poikilocytosis Not Reportable Anisocytosis 1+ Microcytosis Not Reportable Macrocytosis Not Reportable Spherocytes Not Reportable Pappenheimer Bodies Not Reportable Sickle Cells Not Reportable Target Cells Not Reportable Tear Drop Cells Rare Ovalocytes 1+ Helmet Cells Not Reportable Mills-Buna Bodies Not Reportable [place] Rings Not Reportable Mcclure Cells Not Reportable Bite Cells Not Reportable Crenated Cell Not Reportable Elliptocytes Few Acanthocytes (Spur) Not Reportable Rouleaux Not Reportable Hemoglobin C Crystals Not Reportable Schistocytes Not Reportable Malaria parasites Not Reportable Percent Retic 2.90 H Johnathan Bodies Not Reportable Hem Pathologist Commnt No PT 14.8 INR 1.17 H Sodium 141 Potassium 4.0 Chloride 106.0 Carbon Dioxide 25 Anion Gap 14 BUN 6 L Creatinine 0.5 L Estimated GFR > 60 BUN/Creatinine Ratio 12.00 Glucose 88 Calcium 8.6
[2017-01-08] MEDS: LEVAQUIN 750MG/150ML 750 MG/150 ML BAG IV SCH (09:42)
--- NOTE | 2017-01-08 10:06 | Progress Note ---
Hospitalist Physical - Constitutional Vitals: Temp Pulse Resp BP Pulse Ox 98.7 F 92 H 12 104/55 99 01/08/17 07:18 01/08/17 07:18 01/08/17 07:18 01/08/17 07:18 01/08/17 07:18 General appearance: Present: no acute distress, well-nourished Results - Labs CBC & Chem 7: 01/08/17 06:26 01/08/17 06:26 Labs: Laboratory Last Values WBC 4.4 K/mm3 (4.5-11.0) L 01/08/17 06:26 RBC 3.50 M/mm3 (3.65-5.03) L 01/08/17 06:26 Hgb 10.1 gm/dl (11.8-15.2) L 01/08/17 06:26 Hct 31.0 % (35.5-45.6) L 01/08/17 06:26 MCV 89 fl (84-94) 01/08/17 06:26 MCH 29 pg (28-32) 01/08/17 06:26 MCHC 33 % (32-34) 01/08/17 06:26 RDW 14.0 % (13.2-15.2) 01/08/17 06:26 Plt Count 169 K/mm3 (140-440) 01/08/17 06:26 Lymph % (Auto) Bilingual Operator 01/06/17 23:30 Add Manual Diff Complete 01/08/17 06:26 Total Counted 100 01/08/17 06:26 Seg Neutrophils % Bilingual Operator 01/06/17 23:30 Seg Neuts % (Manual) 8.0 % (40.0-70.0) L 01/08/17 06:26 Band Neutrophils % 33.0 % 01/08/17 06:26 Lymphocytes % (Manual) 48.0 % (13.4-35.0) H 01/08/17 06:26 Reactive Lymphs % (Man) 0 % 01/08/17 06:26 Monocytes % (Manual) 4.0 % (0.0-7.3) 01/08/17 06:26 Eosinophils % (Manual) 0 % (0.0-4.3) 01/08/17 06:26 Basophils % (Manual) 1.0 % (0.0-1.8) 01/08/17 06:26 Metamyelocytes % 4.0 % 01/08/17 06:26 Myelocytes % 2.0 % 01/08/17 06:26 Promyelocytes % 0 % 01/08/17 06:26 Blast Cells % 0 % 01/08/17 06:26 Nucleated RBC % Not Reportable 01/08/17 06:26 Seg Neutrophils # Man 0.4 K/mm3 (1.8-7.7) L 01/08/17 06:26 Band Neutrophils # 1.5 K/mm3 01/08/17 06:26 Lymphocytes # (Manual) 2.1 K/mm3 (1.2-5.4) 01/08/17 06:26 Abs React Lymphs (Man) 0.0 K/mm3 01/08/17 06:26 Monocytes # (Manual) 0.2 K/mm3 (0.0-0.8) 01/08/17 06:26 Eosinophils # (Manual) 0.0 K/mm3 (0.0-0.4) 01/08/17 06:26 Basophils # (Manual) 0.0 K/mm3 (0.0-0.1) 01/08/17 06:26 Metamyelocytes # 0.2 K/mm3 01/08/17 06:26 Myelocytes # 0.1 K/mm3 01/08/17 06:26 Promyelocytes # 0.0 K/mm3 01/08/17 06:26 Blast Cells # 0.0 K/mm3 01/08/17 06:26 WBC Morphology Not Reportable 01/08/17 06:26 Hypersegmented Neuts Not Reportable 01/08/17 06:26 Hyposegmented Neuts Not Reportable 01/08/17 06:26 Hypogranular Neuts Not Reportable 01/08/17 06:26 Smudge Cells Not Reportable 01/08/17 06:26 Toxic Granulation Not Reportable 01/08/17 06:26 Toxic Vacuolation Not Reportable 01/08/17 06:26 Dohle Bodies Not Reportable 01/08/17 06:26 Pelger-Huet Anomaly Not Reportable 01/08/17 06:26 Jane Rods Not Reportable 01/08/17 06:26 Platelet Estimate Appears normal 01/08/17 06:26 Clumped Platelets Not Reportable 01/08/17 06:26 Plt Clumps, EDTA Not Reportable 01/08/17 06:26 Large Platelets Not Reportable 01/08/17 06:26 Giant Platelets Not Reportable 01/08/17 06:26 Platelet Satelliting Not Reportable 01/08/17 06:26 Plt Morphology Comment Not Reportable 01/08/17 06:26 RBC Morphology Not Reportable 01/08/17 06:26 Dimorphic RBCs Not Reportable 01/08/17 06:26 Polychromasia Few 01/08/17 06:26 Hypochromasia Not Reportable 01/08/17 06:26 Poikilocytosis Not Reportable 01/08/17 06:26 Anisocytosis 1+ 01/08/17 06:26 Microcytosis Not Reportable 01/08/17 06:26 Macrocytosis Not Reportable 01/08/17 06:26 Spherocytes Not Reportable 01/08/17 06:26 Pappenheimer Bodies Not Reportable 01/08/17 06:26 Sickle Cells Not Reportable 01/08/17 06:26 Target Cells Not Reportable 01/08/17 06:26 Tear Drop Cells Rare 01/08/17 06:26 Ovalocytes 1+ 01/08/17 06:26 Helmet Cells Not Reportable 01/08/17 06:26 [place] Bodies Not Reportable 01/08/17 06:26 [place] Rings Not Reportable 01/08/17 06:26 Isaiah Cells Not Reportable 01/08/17 06:26 Bite Cells Not Reportable 01/08/17 06:26 Crenated Cell Not Reportable 01/08/17 06:26 Elliptocytes Few 01/08/17 06:26 Acanthocytes (Spur) Not Reportable 01/08/17 06:26 Rouleaux Not Reportable 01/08/17 06:26 Hemoglobin C Crystals Not Reportable 01/08/17 06:26 Schistocytes Not Reportable 01/08/17 06:26 Malaria parasites Not Reportable 01/08/17 06:26 Percent Retic 2.90 % (0.78-2.58) H 01/08/17 06:26 Johnathan Bodies Not Reportable 01/08/17 06:26 Hem Pathologist Commnt No 01/08/17 06:26 PT 14.8 Sec. (12.2-14.9) 01/08/17 06:26 INR 1.17 (0.87-1.13) H 01/08/17 06:26 Sodium 141 mmol/L (137-145) 01/08/17 06:26 Potassium 4.0 mmol/L (3.6-5.0) 01/08/17 06:26 Chloride 106.0 mmol/L (98-107) 01/08/17 06:26 Carbon Dioxide 25 mmol/L (22-30) 01/08/17 06:26 Anion Gap 14 mmol/L 01/08/17 06:26 BUN 6 mg/dL (9-20) L 01/08/17 06:26 Creatinine 0.5 mg/dL (0.8-1.5) L 01/08/17 06:26 Estimated GFR > 60 ml/min 01/08/17 06:26 BUN/Creatinine Ratio 12.00 % 01/08/17 06:26 Glucose 88 mg/dL (75-100) 01/08/17 06:26 Calcium 8.6 mg/dL (8.4-10.2) 01/08/17 06:26 Total Bilirubin 0.3 mg/dL (0.1-1.2) 01/06/17 23:30 AST 27 units/L (5-40) 01/06/17 23:30 ALT 21 units/L (7-56) 01/06/17 23:30 Alkaline Phosphatase 135 units/L (35-129) H 01/06/17 23:30 Total Protein 7.6 g/dL (6.3-8.2) 01/06/17 23:30 Albumin 3.8 g/dL (3.9-5) L 01/06/17 23:30 Albumin/Globulin Ratio 1.0 % 01/06/17 23:30 Lipase 26 units/L (13-60) 01/06/17 23:30 Urine Color Yellow (Yellow) 01/07/17 04:38 Urine Turbidity Clear (Clear) 01/07/17 04:38 Urine pH 6.0 (5.0-7.0) 01/07/17 04:38 Ur Specific [place] 1.029 (1.003-1.030) 01/07/17 04:38 Urine Protein <15 mg/dl mg/dL (Negative) 01/07/17 04:38 Urine Glucose (UA) Neg mg/dL (Negative) 01/07/17 04:38 Urine Ketones Neg mg/dL (Negative) 01/07/17 04:38 Urine Blood Neg (Negative) 01/07/17 04:38 Urine Nitrite Neg (Negative) 01/07/17 04:38 Urine Bilirubin Neg (Negative) 01/07/17 04:38 Urine Urobilinogen < 2.0 mg/dL (<2.0) 01/07/17 04:38 Ur Leukocyte Esterase Neg (Negative) 01/07/17 04:38 Urine WBC (Auto) < 1.0 /HPF (0.0-6.0) 01/07/17 04:38 Urine RBC (Auto) < 1.0 /HPF (0.0-6.0) 01/07/17 04:38 Urine Mucus 2+ /HPF 01/07/17 04:38
[2017-01-08] MEDS ORDERED: DIPRIVAN 10 MG/ML IV ONE ×2 (11:13→12:10)
[2017-01-08] MEDS ORDERED: SUBLIMAZE ONE (11:13)
--- NOTE | 2017-01-08 11:37 | Cat Scan Report ---
CT OF THE ABDOMEN AND PELVIS WITHOUT CONTRAST HISTORY: Pelvic pain, foreign body in the rectum. TECHNIQUE: Helical CT without contrast. Sagittal and coronal reformatted images. FINDINGS: The previously described foreign body in the rectum has passed since yesterday's exam at 0358 hours. There is mild thickening of the rectal wall but no evidence for perforation. No bowel obstruction. The remainder of the examination is unchanged since yesterday's exam. The noncontrast CT appearance of the abdominal and pelvic viscera are within normal limits. Vicarious excretion of contrast agent into the gallbladder is noted. IMPRESSION: No foreign body in the rectum is no longer present and has presumably passed since yesterday's exam.
[2017-01-08] MEDS: MS CONTIN ER PO SCH ×4 (12:00→22:02)
--- NOTE | 2017-01-08 12:05 | Progress Note ---
Assessment and Plan Pt status quo. f/u colonoscopy - no foreign body seen just reviewed f/u abd CT this am - no foreign body noted. pt passed foreign body surgically stable Objective Vital Signs - 12hr 01/08/17 07:18 Temperature 98.7 F Pulse Rate [ 92 H Right Radial] Respiratory 12 Rate Blood Pressure 104/55 [Left Arm] O2 Sat by Pulse 99 Oximetry - Labs 01/08/17 06:26 01/08/17 06:26 Diabetes panel 01/08/17 Range/Units 06:26 Sodium 141 (137-145) mmol/L Potassium 4.0 (3.6-5.0) mmol/L Chloride 106.0 (98-107) mmol/L Carbon Dioxide 25 (22-30) mmol/L BUN 6 L (9-20) mg/dL Creatinine 0.5 L (0.8-1.5) mg/dL Glucose 88 (75-100) mg/dL Calcium 8.6 (8.4-10.2) mg/dL Calcium panel 01/08/17 Range/Units 06:26 Calcium 8.6 (8.4-10.2) mg/dL Pituitary panel 01/08/17 Range/Units 06:26 Sodium 141 (137-145) mmol/L Potassium 4.0 (3.6-5.0) mmol/L Chloride 106.0 (98-107) mmol/L Carbon Dioxide 25 (22-30) mmol/L BUN 6 L (9-20) mg/dL Creatinine 0.5 L (0.8-1.5) mg/dL Glucose 88 (75-100) mg/dL Calcium 8.6 (8.4-10.2) mg/dL Adrenal panel 01/08/17 Range/Units 06:26 Sodium 141 (137-145) mmol/L Potassium 4.0 (3.6-5.0) mmol/L Chloride 106.0 (98-107) mmol/L Carbon Dioxide 25 (22-30) mmol/L BUN 6 L (9-20) mg/dL Creatinine 0.5 L (0.8-1.5) mg/dL Glucose 88 (75-100) mg/dL Calcium 8.6 (8.4-10.2) mg/dL
[2017-01-08] MEDS ORDERED: FLAGYL 500 MG/100 ML 500 MG/100 ML BAG IV SCH (14:00)
[2017-01-08] MEDS ORDERED: DILAUDID IV ONE (17:30)
[2017-01-08] MEDS: LOVENOX SUB-Q SCH ×2 (17:32→17:35)
--- NOTE | 2017-01-08 19:21 | Progress Note ---
Assessment and Plan Assessment and plan: --Foreign Body rectum Unsuccessful attempt to remove by GI Status post colonoscopy no foreign body noted CT abdomen without contrast did not show any foreign object However patient reports that he did not pass the object, and CTs requested with contrast Continue current supportive care --History of sickle cell disease Supportive care with IV fluids, pain medications Consult hematology oncology --History of splenectomy Continue current IV antibiotics --DVT prophylaxis, SCDs Patient's condition treatment plan discussed in detail with the patient and his nurse Consults and recommendations noted and appreciated Follow repeat CT abdomen, follow surgery and GI recommendations Possible discharge in 1-2 days if stable History Interval history: Patient seen and evaluated medical records reviewed Patient complains of abdominal pain and generalized body pain requests for more pain medications Complaints of abdominal discomfort, denies passing the foreign body Hospitalist Physical - Constitutional Vitals: Temp Pulse Resp BP Pulse Ox 99.0 F 101 H 16 105/59 98 01/08/17 14:52 01/08/17 14:52 01/08/17 14:52 01/08/17 14:52 01/08/17 14:52 General appearance: Present: no acute distress, well-nourished - EENT Eyes: Present: PERRL, EOM intact - Neck Neck: Present: supple, normal ROM - Respiratory Respiratory effort: normal Respiratory: bilateral: diminished, negative: rales, rhonchi, wheezing - Cardiovascular Rhythm: regular Heart Sounds: Present: S1 & S2 - Extremities Extremities: no ischemia, pulses intact, pulses symmetrical Peripheral Pulses: within normal limits - Abdominal General gastrointestinal: soft, tender (vague tenderness), distended (mild), normal bowel sounds - Integumentary Integumentary: Present: clear, warm - Psychiatric Psychiatric: appropriate mood/affect, cooperative - Neurologic Neurologic: CNII-XII intact, moves all extremities Results - Labs CBC & Chem 7: 01/08/17 06:26 01/08/17 06:26 Labs: Laboratory Last Values WBC 4.4 K/mm3 (4.5-11.0) L 01/08/17 06:26 RBC 3.50 M/mm3 (3.65-5.03) L 01/08/17 06:26 Hgb 10.1 gm/dl (11.8-15.2) L 01/08/17 06:26 Hct 31.0 % (35.5-45.6) L 01/08/17 06:26 MCV 89 fl (84-94) 01/08/17 06:26 MCH 29 pg (28-32) 01/08/17 06:26 MCHC 33 % (32-34) 01/08/17 06:26 RDW 14.0 % (13.2-15.2) 01/08/17 06:26 Plt Count 169 K/mm3 (140-440) 01/08/17 06:26 Lymph % (Auto) [employer] Designer 01/06/17 23:30 Add Manual Diff Complete 01/08/17 06:26 Total Counted 100 01/08/17 06:26 Seg Neutrophils % [employer] Designer 01/06/17 23:30 Seg Neuts % (Manual) 8.0 % (40.0-70.0) L 01/08/17 06:26 Band Neutrophils % 33.0 % 01/08/17 06:26 Lymphocytes % (Manual) 48.0 % (13.4-35.0) H 01/08/17 06:26 Reactive Lymphs % (Man) 0 % 01/08/17 06:26 Monocytes % (Manual) 4.0 % (0.0-7.3) 01/08/17 06:26 Eosinophils % (Manual) 0 % (0.0-4.3) 01/08/17 06:26 Basophils % (Manual) 1.0 % (0.0-1.8) 01/08/17 06:26 Metamyelocytes % 4.0 % 01/08/17 06:26 Myelocytes % 2.0 % 01/08/17 06:26 Promyelocytes % 0 % 01/08/17 06:26 Blast Cells % 0 % 01/08/17 06:26 Nucleated RBC % Not Reportable 01/08/17 06:26 Seg Neutrophils # Man 0.4 K/mm3 (1.8-7.7) L 01/08/17 06:26 Band Neutrophils # 1.5 K/mm3 01/08/17 06:26 Lymphocytes # (Manual) 2.1 K/mm3 (1.2-5.4) 01/08/17 06:26 Abs React Lymphs (Man) 0.0 K/mm3 01/08/17 06:26 Monocytes # (Manual) 0.2 K/mm3 (0.0-0.8) 01/08/17 06:26 Eosinophils # (Manual) 0.0 K/mm3 (0.0-0.4) 01/08/17 06:26 Basophils # (Manual) 0.0 K/mm3 (0.0-0.1) 01/08/17 06:26 Metamyelocytes # 0.2 K/mm3 01/08/17 06:26 Myelocytes # 0.1 K/mm3 01/08/17 06:26 Promyelocytes # 0.0 K/mm3 01/08/17 06:26 Blast Cells # 0.0 K/mm3 01/08/17 06:26 WBC Morphology Not Reportable 01/08/17 06:26 Hypersegmented Neuts Not Reportable 01/08/17 06:26 Hyposegmented Neuts Not Reportable 01/08/17 06:26 Hypogranular Neuts Not Reportable 01/08/17 06:26 Smudge Cells Not Reportable 01/08/17 06:26 Toxic Granulation Not Reportable 01/08/17 06:26 Toxic Vacuolation Not Reportable 01/08/17 06:26 Dohle Bodies Not Reportable 01/08/17 06:26 Pelger-Huet Anomaly Not Reportable 01/08/17 06:26 Jane Rods Not Reportable 01/08/17 06:26 Platelet Estimate Appears normal 01/08/17 06:26 Clumped Platelets Not Reportable 01/08/17 06:26 Plt Clumps, EDTA Not Reportable 01/08/17 06:26 Large Platelets Not Reportable 01/08/17 06:26 Giant Platelets Not Reportable 01/08/17 06:26 Platelet Satelliting Not Reportable 01/08/17 06:26 Plt Morphology Comment Not Reportable 01/08/17 06:26 RBC Morphology Not Reportable 01/08/17 06:26 Dimorphic RBCs Not Reportable 01/08/17 06:26 Polychromasia Few 01/08/17 06:26 Hypochromasia Not Reportable 01/08/17 06:26 Poikilocytosis Not Reportable 01/08/17 06:26 Anisocytosis 1+ 01/08/17 06:26 Microcytosis Not Reportable 01/08/17 06:26 Macrocytosis Not Reportable 01/08/17 06:26 Spherocytes Not Reportable 01/08/17 06:26 Pappenheimer Bodies Not Reportable 01/08/17 06:26 Sickle Cells Not Reportable 01/08/17 06:26 Target Cells Not Reportable 01/08/17 06:26 Tear Drop Cells Rare 01/08/17 06:26 Ovalocytes 1+ 01/08/17 06:26 Helmet Cells Not Reportable 01/08/17 06:26 [place] Bodies Not Reportable 01/08/17 06:26 [place] Rings Not Reportable 01/08/17 06:26 [place] Cells Not Reportable 01/08/17 06:26 Bite Cells Not Reportable 01/08/17 06:26 Crenated Cell Not Reportable 01/08/17 06:26 Elliptocytes Few 01/08/17 06:26 Acanthocytes (Spur) Not Reportable 01/08/17 06:26 Rouleaux Not Reportable 01/08/17 06:26 Hemoglobin C Crystals Not Reportable 01/08/17 06:26 Schistocytes Not Reportable 01/08/17 06:26 Malaria parasites Not Reportable 01/08/17 06:26 Percent Retic 2.90 % (0.78-2.58) H 01/08/17 06:26 Johnathan Bodies Not Reportable 01/08/17 06:26 Hem Pathologist Commnt No 01/08/17 06:26 PT 14.8 Sec. (12.2-14.9) 01/08/17 06:26 INR 1.17 (0.87-1.13) H 01/08/17 06:26 Sodium 141 mmol/L (137-145) 01/08/17 06:26 Potassium 4.0 mmol/L (3.6-5.0) 01/08/17 06:26 Chloride 106.0 mmol/L (98-107) 01/08/17 06:26 Carbon Dioxide 25 mmol/L (22-30) 01/08/17 06:26 Anion Gap 14 mmol/L 01/08/17 06:26 BUN 6 mg/dL (9-20) L 01/08/17 06:26 Creatinine 0.5 mg/dL (0.8-1.5) L 01/08/17 06:26 Estimated GFR > 60 ml/min 01/08/17 06:26 BUN/Creatinine Ratio 12.00 % 01/08/17 06:26 Glucose 88 mg/dL (75-100) 01/08/17 06:26 Calcium 8.6 mg/dL (8.4-10.2) 01/08/17 06:26 Total Bilirubin 0.3 mg/dL (0.1-1.2) 01/06/17 23:30 AST 27 units/L (5-40) 01/06/17 23:30 ALT 21 units/L (7-56) 01/06/17 23:30 Alkaline Phosphatase 135 units/L (35-129) H 01/06/17 23:30 Total Protein 7.6 g/dL (6.3-8.2) 01/06/17 23:30 Albumin 3.8 g/dL (3.9-5) L 01/06/17 23:30 Albumin/Globulin Ratio 1.0 % 01/06/17 23:30 Lipase 26 units/L (13-60) 01/06/17 23:30 Urine Color Yellow (Yellow) 01/07/17 04:38 Urine Turbidity Clear (Clear) 01/07/17 04:38 Urine pH 6.0 (5.0-7.0) 01/07/17 04:38 Ur Specific [place] 1.029 (1.003-1.030) 01/07/17 04:38 Urine Protein <15 mg/dl mg/dL (Negative) 01/07/17 04:38 Urine Glucose (UA) Neg mg/dL (Negative) 01/07/17 04:38 Urine Ketones Neg mg/dL (Negative) 01/07/17 04:38 Urine Blood Neg (Negative) 01/07/17 04:38 Urine Nitrite Neg (Negative) 01/07/17 04:38 Urine Bilirubin Neg (Negative) 01/07/17 04:38 Urine Urobilinogen < 2.0 mg/dL (<2.0) 01/07/17 04:38 Ur Leukocyte Esterase Neg (Negative) 01/07/17 04:38 Urine WBC (Auto) < 1.0 /HPF (0.0-6.0) 01/07/17 04:38 Urine RBC (Auto) < 1.0 /HPF (0.0-6.0) 01/07/17 04:38 Urine Mucus 2+ /HPF 01/07/17 04:38
[2017-01-08] MEDS: ZOFRAN IV PRN (22:00)
[2017-01-08] MEDS: PEPCID PO SCH (22:01)
[2017-01-09] MEDS: DILAUDID IV PRN ×5 (00:19→19:30)
[2017-01-09] MEDS ORDERED: PEPCID PO PRN ×2 (01:30→01:44)
[2017-01-09] MEDS: BENADRYL IV PRN ×3 (02:00→15:46)
[2017-01-09] MEDS: DELTASONE PO NR ×2 (02:07→09:00)
[2017-01-09] MEDS: PEPCID PO SCH ×3 (02:13→22:58)
[2017-01-09] MEDS: MS CONTIN ER PO SCH ×3 (02:28→23:01)
[2017-01-09 05:02] LABS: Urine Drugs of Abuse Note Disclamer
[2017-01-09 05:43] LABS: Basophils % (Auto) 0.2 % (0.0-1.8); Eosinophils % (Auto) 0.7 % (0.0-4.3); Hemoglobin 11.1 gm/dl (11.8-15.2); Mean Corpuscular HGB Conc 33 % (32-34); Mean Corpuscular Hemoglobin 29 pg (28-32); Mean Corpuscular Volume 89 fl (84-94); Platelet Count 154 K/mm3 (140-440); Red Blood Count 3.84 M/mm3 (3.65-5.03); Red Cell Distribution Width 14.3 % (13.2-15.2); White Blood Count 2.8 K/mm3 (4.5-11.0)
[2017-01-09 05:56] LABS: Anion Gap 18 mmol/L; BUN/Creatinine Ratio 8.33; Blood Urea Nitrogen 5 mg/dL (9-20); Calcium 8.9 mg/dL (8.4-10.2); Carbon Dioxide 24 mmol/L (22-30); Chloride 102.9 mmol/L (98-107); Glucose 109 mg/dL (75-100); Potassium 4.2 mmol/L (3.6-5.0); Sodium 141 mmol/L (137-145)
[2017-01-09] MEDS: FLAGYL 500 MG/100 ML 500 MG/100 ML BAG IV SCH ×3 (06:30→23:03)
[2017-01-09] MEDS: LEVAQUIN 750MG/150ML 750 MG/150 ML BAG IV SCH (09:08)
--- NOTE | 2017-01-09 09:09 | Progress Note ---
Assessment and Plan Assessment and plan: --Foreign Body rectum Unsuccessful attempt to remove by GI Status post colonoscopy no foreign body noted CT abdomen without contrast did not show any foreign object CT abdomen with contrast today If no foreign body noted patient can be discharged home --History of sickle cell disease Supportive care with IV fluids, pain medications Consult hematology oncology --History of splenectomy Continue current IV antibiotics --DVT prophylaxis, SCDs Patient's condition treatment plan discussed in detail with the patient and his nurse Consults and recommendations noted and appreciated Plan of care discussed with the patient as well as his nurse History Interval history: Patient seen and evaluated in his room this morning medical records reviewed No new events reported by the nursing staff Patient denies passing any foreign object Awaiting for CT abdomen and pelvis Alert awake oriented 3 not in acute distress vital signs reviewed Hospitalist Physical - Constitutional Vitals: Temp Pulse Resp BP Pulse Ox 98.7 F 74 15 105/65 95 01/09/17 07:20 01/09/17 07:20 01/09/17 07:20 01/09/17 07:20 01/09/17 07:20 General appearance: Present: no acute distress, well-nourished - EENT Eyes: Present: PERRL, EOM intact - Neck Neck: Present: supple, normal ROM - Respiratory Respiratory effort: normal Respiratory: negative: rales, rhonchi, wheezing - Cardiovascular Rhythm: regular Heart Sounds: Present: S1 & S2 - Extremities Extremities: no ischemia, pulses intact, pulses symmetrical Peripheral Pulses: within normal limits - Abdominal General gastrointestinal: soft, non-tender, non-distended, normal bowel sounds - Integumentary Integumentary: Present: clear, warm - Psychiatric Psychiatric: appropriate mood/affect, cooperative - Neurologic Neurologic: CNII-XII intact, moves all extremities Results - Labs CBC & Chem 7: 01/09/17 04:43 01/09/17 04:43 Labs: Laboratory Last Values WBC 2.8 K/mm3 (4.5-11.0) L 01/09/17 04:43 RBC 3.84 M/mm3 (3.65-5.03) 01/09/17 04:43 Hgb 11.1 gm/dl (11.8-15.2) L 01/09/17 04:43 Hct 34.0 % (35.5-45.6) L 01/09/17 04:43 MCV 89 fl (84-94) 01/09/17 04:43 MCH 29 pg (28-32) 01/09/17 04:43 MCHC 33 % (32-34) 01/09/17 04:43 RDW 14.3 % (13.2-15.2) 01/09/17 04:43 Plt Count 154 K/mm3 (140-440) 01/09/17 04:43 Lymph % (Auto) 41.3 % (13.4-35.0) H 01/09/17 04:43 [place] % (Auto) 4.5 % (0.0-7.3) 01/09/17 04:43 Eos % (Auto) 0.7 % (0.0-4.3) 01/09/17 04:43 Baso % (Auto) 0.2 % (0.0-1.8) 01/09/17 04:43 Lymph # 1.2 K/mm3 (1.2-5.4) 01/09/17 04:43 [place] # 0.1 K/mm3 (0.0-0.8) 01/09/17 04:43 Eos # 0.0 K/mm3 (0.0-0.4) 01/09/17 04:43 Baso # 0.0 K/mm3 (0.0-0.1) 01/09/17 04:43 Add Manual Diff Complete 01/08/17 06:26 Total Counted 100 01/08/17 06:26 Seg Neutrophils % 53.3 % (40.0-70.0) 01/09/17 04:43 Seg Neuts % (Manual) 8.0 % (40.0-70.0) L 01/08/17 06:26 Band Neutrophils % 33.0 % 01/08/17 06:26 Lymphocytes % (Manual) 48.0 % (13.4-35.0) H 01/08/17 06:26 Reactive Lymphs % (Man) 0 % 01/08/17 06:26 Monocytes % (Manual) 4.0 % (0.0-7.3) 01/08/17 06:26 Eosinophils % (Manual) 0 % (0.0-4.3) 01/08/17 06:26 Basophils % (Manual) 1.0 % (0.0-1.8) 01/08/17 06:26 Metamyelocytes % 4.0 % 01/08/17 06:26 Myelocytes % 2.0 % 01/08/17 06:26 Promyelocytes % 0 % 01/08/17 06:26 Blast Cells % 0 % 01/08/17 06:26 Nucleated RBC % Not Reportable 01/08/17 06:26 Seg Neutrophils # 1.5 K/mm3 (1.8-7.7) L 01/09/17 04:43 Seg Neutrophils # Man 0.4 K/mm3 (1.8-7.7) L 01/08/17 06:26 Band Neutrophils # 1.5 K/mm3 01/08/17 06:26 Lymphocytes # (Manual) 2.1 K/mm3 (1.2-5.4) 01/08/17 06:26 Abs React Lymphs (Man) 0.0 K/mm3 01/08/17 06:26 Monocytes # (Manual) 0.2 K/mm3 (0.0-0.8) 01/08/17 06:26 Eosinophils # (Manual) 0.0 K/mm3 (0.0-0.4) 01/08/17 06:26 Basophils # (Manual) 0.0 K/mm3 (0.0-0.1) 01/08/17 06:26 Metamyelocytes # 0.2 K/mm3 01/08/17 06:26 Myelocytes # 0.1 K/mm3 01/08/17 06:26 Promyelocytes # 0.0 K/mm3 01/08/17 06:26 Blast Cells # 0.0 K/mm3 01/08/17 06:26 WBC Morphology Not Reportable 01/08/17 06:26 Hypersegmented Neuts Not Reportable 01/08/17 06:26 Hyposegmented Neuts Not Reportable 01/08/17 06:26 Hypogranular Neuts Not Reportable 01/08/17 06:26 Smudge Cells Not Reportable 01/08/17 06:26 Toxic Granulation Not Reportable 01/08/17 06:26 Toxic Vacuolation Not Reportable 01/08/17 06:26 Dohle Bodies Not Reportable 01/08/17 06:26 Pelger-Huet Anomaly Not Reportable 01/08/17 06:26 Jane Rods Not Reportable 01/08/17 06:26 Platelet Estimate Appears normal 01/08/17 06:26 Clumped Platelets Not Reportable 01/08/17 06:26 Plt Clumps, EDTA Not Reportable 01/08/17 06:26 Large Platelets Not Reportable 01/08/17 06:26 Giant Platelets Not Reportable 01/08/17 06:26 Platelet Satelliting Not Reportable 01/08/17 06:26 Plt Morphology Comment Not Reportable 01/08/17 06:26 RBC Morphology Not Reportable 01/08/17 06:26 Dimorphic RBCs Not Reportable 01/08/17 06:26 Polychromasia Few 01/08/17 06:26 Hypochromasia Not Reportable 01/08/17 06:26 Poikilocytosis Not Reportable 01/08/17 06:26 Anisocytosis 1+ 01/08/17 06:26 Microcytosis Not Reportable 01/08/17 06:26 Macrocytosis Not Reportable 01/08/17 06:26 Spherocytes Not Reportable 01/08/17 06:26 Pappenheimer Bodies Not Reportable 01/08/17 06:26 Sickle Cells Not Reportable 01/08/17 06:26 Target Cells Not Reportable 01/08/17 06:26 Tear Drop Cells Rare 01/08/17 06:26 Ovalocytes 1+ 01/08/17 06:26 Helmet Cells Not Reportable 01/08/17 06:26 [place] Bodies Not Reportable 01/08/17 06:26 [place] Rings Not Reportable 01/08/17 06:26 Isaiah Cells Not Reportable 01/08/17 06:26 Bite Cells Not Reportable 01/08/17 06:26 Crenated Cell Not Reportable 01/08/17 06:26 Elliptocytes Few 01/08/17 06:26 Acanthocytes (Spur) Not Reportable 01/08/17 06:26 Rouleaux Not Reportable 01/08/17 06:26 Hemoglobin C Crystals Not Reportable 01/08/17 06:26 Schistocytes Not Reportable 01/08/17 06:26 Malaria parasites Not Reportable 01/08/17 06:26 Percent Retic 2.90 % (0.78-2.58) H 01/08/17 06:26 Johnathan Bodies Not Reportable 01/08/17 06:26 Hem Pathologist Commnt No 01/08/17 06:26 PT 14.8 Sec. (12.2-14.9) 01/08/17 06:26 INR 1.17 (0.87-1.13) H 01/08/17 06:26 Sodium 141 mmol/L (137-145) 01/09/17 04:43 Potassium 4.2 mmol/L (3.6-5.0) 01/09/17 04:43 Chloride 102.9 mmol/L (98-107) 01/09/17 04:43 Carbon Dioxide 24 mmol/L (22-30) 01/09/17 04:43 Anion Gap 18 mmol/L 01/09/17 04:43 BUN 5 mg/dL (9-20) L 01/09/17 04:43 Creatinine 0.6 mg/dL (0.8-1.5) L 01/09/17 04:43 Estimated GFR > 60 ml/min 01/09/17 04:43 BUN/Creatinine Ratio 8.33 % 01/09/17 04:43 Glucose 109 mg/dL (75-100) H 01/09/17 04:43 Calcium 8.9 mg/dL (8.4-10.2) 01/09/17 04:43 Total Bilirubin 0.3 mg/dL (0.1-1.2) 01/06/17 23:30 AST 27 units/L (5-40) 01/06/17 23:30 ALT 21 units/L (7-56) 01/06/17 23:30 Alkaline Phosphatase 135 units/L (35-129) H 01/06/17 23:30 Total Protein 7.6 g/dL (6.3-8.2) 01/06/17 23:30 Albumin 3.8 g/dL (3.9-5) L 01/06/17 23:30 Albumin/Globulin Ratio 1.0 % 01/06/17 23:30 Lipase 26 units/L (13-60) 01/06/17 23:30 Urine Color Yellow (Yellow) 01/07/17 04:38 Urine Turbidity Clear (Clear) 01/07/17 04:38 Urine pH 6.0 (5.0-7.0) 01/07/17 04:38 Ur Specific [place] 1.029 (1.003-1.030) 01/07/17 04:38 Urine Protein <15 mg/dl mg/dL (Negative) 01/07/17 04:38 Urine Glucose (UA) Neg mg/dL (Negative) 01/07/17 04:38 Urine Ketones Neg mg/dL (Negative) 01/07/17 04:38 Urine Blood Neg (Negative) 01/07/17 04:38 Urine Nitrite Neg (Negative) 01/07/17 04:38 Urine Bilirubin Neg (Negative) 01/07/17 04:38 Urine Urobilinogen < 2.0 mg/dL (<2.0) 01/07/17 04:38 Ur Leukocyte Esterase Neg (Negative) 01/07/17 04:38 Urine WBC (Auto) < 1.0 /HPF (0.0-6.0) 01/07/17 04:38 Urine RBC (Auto) < 1.0 /HPF (0.0-6.0) 01/07/17 04:38 Urine Mucus 2+ /HPF 01/07/17 04:38 Urine Opiates Screen Presumptive negative 01/08/17 04:45 Urine Methadone Screen Presumptive negative 01/08/17 04:45 Ur Barbiturates Screen Presumptive negative 01/08/17 04:45 Ur Phencyclidine Scrn Presumptive negative 01/08/17 04:45 Ur Amphetamines Screen Presumptive negative 01/08/17 04:45 U Benzodiazepines Scrn Presumptive negative 01/08/17 04:45 Urine Cocaine Screen Presumptive negative 01/08/17 04:45 U Marijuana (THC) Screen Presumptive negative 01/08/17 04:45 Drugs of Abuse Note Disclamer 01/08/17 04:45
--- NOTE | 2017-01-09 09:23 | Progress Note ---
Assessment and Plan Pt status quo. Sitting up in bed. Feeling well. Abd soft. scheduled for another CT today. surgically stable Objective Vital Signs - 12hr 01/08/17 01/08/17 01/09/17 22:00 23:00 00:19 Temperature 99.5 F Pulse Rate [ Left Radial] Pulse Rate [ 102 H Right Radial] Respiratory 22 18 20 Rate Blood Pressure 112/56 [Left Arm] O2 Sat by Pulse 99 Oximetry 01/09/17 01/09/17 04:41 07:20 Temperature 98.7 F Pulse Rate [ 74 Left Radial] Pulse Rate [ Right Radial] Respiratory 18 15 Rate Blood Pressure 105/65 [Left Arm] O2 Sat by Pulse 95 Oximetry - Labs 01/09/17 04:43 01/09/17 04:43 Diabetes panel 01/09/17 Range/Units 04:43 Sodium 141 (137-145) mmol/L Potassium 4.2 (3.6-5.0) mmol/L Chloride 102.9 (98-107) mmol/L Carbon Dioxide 24 (22-30) mmol/L BUN 5 L (9-20) mg/dL Creatinine 0.6 L (0.8-1.5) mg/dL Glucose 109 H (75-100) mg/dL Calcium 8.9 (8.4-10.2) mg/dL Calcium panel 01/09/17 Range/Units 04:43 Calcium 8.9 (8.4-10.2) mg/dL Pituitary panel 01/09/17 Range/Units 04:43 Sodium 141 (137-145) mmol/L Potassium 4.2 (3.6-5.0) mmol/L Chloride 102.9 (98-107) mmol/L Carbon Dioxide 24 (22-30) mmol/L BUN 5 L (9-20) mg/dL Creatinine 0.6 L (0.8-1.5) mg/dL Glucose 109 H (75-100) mg/dL Calcium 8.9 (8.4-10.2) mg/dL Adrenal panel 01/09/17 Range/Units 04:43 Sodium 141 (137-145) mmol/L Potassium 4.2 (3.6-5.0) mmol/L Chloride 102.9 (98-107) mmol/L Carbon Dioxide 24 (22-30) mmol/L BUN 5 L (9-20) mg/dL Creatinine 0.6 L (0.8-1.5) mg/dL Glucose 109 H (75-100) mg/dL Calcium 8.9 (8.4-10.2) mg/dL
[2017-01-09] MEDS ORDERED: PERCOCET 5/325 PO PRN (10:33)
[2017-01-09] MEDS: HYDREA PO SCH ×2 (11:00→22:58)
[2017-01-09] MEDS: LOVENOX SUB-Q SCH (11:00)
--- NOTE | 2017-01-09 14:15 | Event Note ---
Date: 01/09/17 - pt awaiting ct scan w/ contrast - if negative ct ok to d/c from GI standpoint
--- NOTE | 2017-01-09 16:43 | Cat Scan Report ---
CT abdomen and pelvis with contrast: Measures images are obtained from lower chest to the ischium with coronal and sagittal 2-D reformatted images. The visualized lungs are normal. There is vicarious excretion of contrast into the gallbladder. Abdominal and retroperitoneal organs are not otherwise remarkable. There is mild dilatation of gas and fluid-filled small bowel loops in the midabdomen. The distal bowel appears decompressed. Scattered fecal matter is present throughout the nondistended colon. No evidence of free air or fluid. No inflammatory changes identified. No foreign body currently identified. Compared to the patient's prior study on January 08 the dilated small bowel is new but the findings are not otherwise significantly different. Impression: Interval development of nonspecific small bowel ileus.
[2017-01-09] MEDS: NACL 0.9% 1000 ML 1,000 ML IV SCH (19:38)
[2017-01-10] MEDS: DILAUDID IV PRN ×3 (00:12→08:56)
[2017-01-10 00:19] VITALS: BP 127/63
[2017-01-10] MEDS ORDERED: BENADRYL IV ONE (00:32)
[2017-01-10] MEDS: FLAGYL 500 MG/100 ML 500 MG/100 ML BAG IV SCH (05:51)
--- NOTE | 2017-01-10 08:54 | Discharge Summary ---
Providers - Providers Date of Admission: 01/07/17 05:54 Date of discharge: 01/10/17 Attending physician: HÉCTOR MARTINEZ 01/07/17 12:15 Consult to Physician [CONS] Routine Consulting Provider: ТАТЬЯНА HUGGINS Reason For Exam: foreign object rectum/failed attempt by GI Place consult to:: DR. HUGGINS Notified:: [facility] Phone number called:: [phone] Was contact made?: Yes If yes, spoke with:: SERAFIN Time called:: 12:29 Comment:: TONI NOTIFIED 01/07/17 13:06 Consult to Physician [CONS] Routine Consulting Provider: NOVA MCKEON Reason For Exam: pre - op sickle cell pt Place consult to:: DR. MCKEON Notified:: DR. MCKEON 01/07/17 13:09 Consult to Physician [CONS] Routine Consulting Provider: MONTSERRAT SMITH Reason For Exam: sickle cell pt for surg in am Place consult to:: DR. SMITH Notified:: OFFICE Phone number called:: [phone] Was contact made?: Yes If yes, spoke with:: YAAKOV Time called:: 13:38 Comment:: TONI NOTIFIED 01/09/17 10:20 psychiatry consult [Consult to Mental Health] [CONS] Routine Reason For Exam: psychosis/hallucinations Place consult to:: REGINA Notified:: REGINA Phone number called:: [phone] Was contact made?: Yes If yes, spoke with:: REGINA Time called:: 09:26 Comment:: MORRO NOTIFIED Hospitalization Condition: Fair Pertinent studies: 01/07/2017 X-ray abdomen; no radio opaque foreign body is identified CT abdomen and pelvis with contrast; disease of foreign object identified within the upper rectum, measures 5 cm in length no evidence of intestinal or urinary tract obstruction 01/08/2017 CT abdomen and pelvis without contrast; No foreign body in the rectum, no longer present and has presumably passed since yesterday's exam 01/09/2017 CT abdomen and pelvis with contrast; No foreign body currently identified interval development of nonspecific small bowel ileus Disposition: DISCHARGED TO HOME OR SELFCARE Core Measure Documentation - Palliative Care Palliative Care/ Comfort Measures: Not Applicable - Core Measures Any of the following diagnoses?: none Exam - Constitutional Vitals: Temp Pulse Resp BP Pulse Ox 97.5 F L 94 H 18 127/63 96 01/10/17 00:17 01/10/17 00:17 01/10/17 00:17 01/10/17 00:17 01/10/17 00:17 General appearance: Present: no acute distress, well-nourished - EENT Eyes: Present: PERRL, EOM intact - Neck Neck: Present: supple, normal ROM - Respiratory Respiratory effort: normal Respiratory: negative: rales, rhonchi, wheezing - Cardiovascular Rhythm: regular Heart Sounds: Present: S1 & S2 - Extremities Extremities: no ischemia, pulses intact, pulses symmetrical Peripheral Pulses: within normal limits - Abdominal General gastrointestinal: Present: soft, non-tender, normal bowel sounds - Integumentary Integumentary: Present: clear, warm - Musculoskeletal Musculoskeletal: strength equal bilaterally - Psychiatric Psychiatric: appropriate mood/affect, cooperative - Neurologic Neurologic: CNII-XII intact, moves all extremities Plan Activity: no restrictions Diet: advance as tolerated, other (soft diet ) Additional Instructions: f/u private GI [from out of town ] as needed. 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 soft diet , advance as tolerated. prescription 1 week hydroxyurea given [pt requested] Follow up with: ANGELLA SAMPSON [Other] - 3-5 Days Prescriptions: Docusate Sodium [Colace] 100 mg PO BID PRN #14 capsule PRN Reason: Constipation Hydroxyurea 500 mg PO BID #14
[2017-01-10] MEDS: HYDREA PO SCH (09:03)
[2017-01-10] MEDS: PEPCID PO SCH (09:04)
[2017-01-10] MEDS: LEVAQUIN 750MG/150ML 750 MG/150 ML BAG IV SCH (09:05)
[2017-01-10] MEDS: MS CONTIN ER PO SCH (11:01)
[2017-01-10] MEDS: LOVENOX SUB-Q SCH (13:42)
== END 2017-01-10 12:30 | disposition home or self-care (01) | DRG 391 ==
LOC: ED 22:20 → EEVIPCON 01-07 05:54 → 3A 01-07 05:54
PROVIDERS: ADMIT Internal Medicine; ATTEND Internal Medicine
PROC: 0DJD8ZZ Inspection of Lower Intestinal Tract, Via Natural or Artificial Opening Endoscopic (ICD-10-PCS; principal; 2017-01-07)
DX: R10.9 Unspecified abdominal pain (principal); D57.00 Hb-SS disease with crisis, unspecified; Z90.81 Acquired absence of spleen; Z88.8 Allergy status to other drugs, medicaments and biological substances; Z83.2 Family history of diseases of the blood and blood-forming organs and certain disorders involving the immune mechanism
CPT/HCPCS: 36415; 74020; 74176; 74177; 80048; 80053; 80307; 81001; 83690; 85007; 85025; 85045; 85610; 96374; 96375; 96376; J0330; J1170; J1200; J1650; J1956; J2250; J2270; J2405; J2704; J3010; J7030; J7512; Q9967